=== PATIENT | female | born 2005 | race Caucasian/White ===

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

== ENCOUNTER 2023-02-20 18:19 | Emergency (ER) | payer OTHER, SELFPAY ==
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
[2023-02-20 18:34] VITALS: BP 152/104; PULSE 93; RESP 20; TEMP 36.2; O2SAT 100
[2023-02-20 20:37] VITALS: BP 144/76; PULSE 89; TEMP 37.1; O2SAT 100
--- NOTE | 2023-02-20 20:39 | ECG_ITS ---
Measurements Intervals [place] Rate: 84 P: 46 [place]: 152 QRS: 31 QRSD: 90 T: 40 QT: 355 QTc: 421 Interpretive Statements SINUS RHYTHM NO PREVIOUS ECG AVAILABLE FOR COMPARISON Electronically Signed On 02-21-2023 13:29:12 INSIGHT LEADER by Harish Mckinney M.D.
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
[2023-02-20] MEDS: ACETAMINOPHEN 500 MG TABLET 1000 MG PO (20:58)
[2023-02-20] MEDS: CYCLOBENZAPRINE HCL 10 MG TABLET PO (20:58)
[2023-02-20 21:12] LABS: Basophils Percent Auto 0.2 % (0.2-1.2); Eosinophils Absolute Auto 0.1 K/mm3 (0-0.3); Eosinophils Percent Auto 0.5 % (0-4.4); Hematocrit 42.8 % (37.0-47.0); Hemoglobin 13.3 g/dL (12.0-15.0); Immature Granulocyte Absolute 0.04 K/mm3 (0.00-0.031); Immature Granulocyte Percent A 0.4 % (0-0.5); Lymphocytes Absolute Auto 2.94 K/mm3 (0.9-3.2); Lymphocytes Percent Auto 31.5 % (18.3-44.2); Mean Corpuscular HGB Conc 31.1 g/dl (32-36); Mean Corpuscular Hemoglobin 26.6 pg (26-34); Mean Corpuscular Volume 85.6 fl (80-100); Mean Platelet Volume 10.5 fl (7.4-10.4); Monocytes Absolute Auto 0.5 K/mm3 (0.1-0.6); Monocytes Percent Auto 4.9 % (2.6-8.5); Neutrophils Absolute Auto 5.8 K/mm3 (1.3-6.7); Neutrophils Percent Auto 62.5 % (45.5-73.1); Platelet Count Result 282 k/mm3 (150-375); White Blood Count 9.3 K/mm3 (4.5-10.0)
[2023-02-20 21:21] LABS: Anion Gap 12 mmol/L (8-16); Blood Urea Nitrogen 12 mg/dL (8-21); Calcium 9.6 mg/dL (8.9-10.7); Carbon Dioxide 23 mmol/L (22-30); Chloride 106 mmol/L (98-107); Estimated CRCL calculation 137 ml/min; Estimated Glomerular Filt Rate > 60; Glucose 106 mg/dL (65-110); Potassium 3.9 mmol/L (3.4-5.0); Sodium 141 mmol/L (134-143)
[2023-02-20 21:31] LABS: Appearance Urine Cloudy (Clear); Bacteria Urine 4+ /hpf; Bilirubin Urine Negative (Negative); Blood Urine 3+ (Negative); Color Urine Yellow (Yellow); Glucose Urine UA Negative (Negative); Ketones Urine Trace mg/dL (Negative); Leukocyte Esterase Ur 1+ LEU/UL (Negative); Nitrate Urine Negative (Negative); Non Pathogenic Casts 0-2; Protein Urine 1+ mg/dL (Negative); Squamous Epithelial Cell Urine Occasional /hpf (Few); WBC Urine 51-100 /hpf; pH Urine 5.5 (5.0-9.0)
[2023-02-20 21:33] LABS: Troponin I < 0.012 ng/mL (0.000-0.034)
[2023-02-20 21:48] LABS: Specific Grav Ur 1.037 (1.001-1.035)
[2023-02-20 21:52] LABS: Add Urine Microscopic? YES
[2023-02-20] MEDS: CEPHALEXIN 500 MG CAPSULE PO (22:29)
== END 2023-02-20 22:33 | disposition home or self-care (01) ==
PROVIDERS: Emergency Provider Physician Assistant; PCP Nurse Practitioner Family
DX: S16.1XXA Strain of muscle, fascia and tendon at neck level, initial encounter (principal); S39.012A Strain of muscle, fascia and tendon of lower back, initial encounter; N30.01 Acute cystitis with hematuria; R07.89 Other chest pain; V43.52XA Car driver injured in collision with other type car in traffic accident, initial encounter
CPT/HCPCS: 36415; 71260; 72125; 72129; 72132; 74177; 80048; 81001; 81025; 84484; 85025; 87086; 87088; 93005; 99284; A9270; Q9967

== ENCOUNTER 2023-04-30 14:51 | Emergency (ER) | payer MEDICAID, SELFPAY ==
[2023-04-30 14:51] VITALS: BP 143/87; PULSE 98; RESP 20; TEMP 36.1; O2SAT 98
--- NOTE | 2023-04-30 14:55 | ED.URI ---
HPI - URI/Sore Throat General Chief Complaint: Upper Respiratory Infection Stated Complaint: sore throat, cough Source: patient Mode of arrival: ambulatory Limitations: no limitations History of Present Illness HPI Narrative: patient is a 17-year-old female with cough and congestion for the past 3 days. MD elicited complaint: fever, cough, sore throat, rhinorrhea, nasal congestion and sinus pain Onset (ago): day(s) (3) Consistency: constant Severity: moderate Pain scale (0-10): 1 Description of mucous: clear, watery and yellow Able to tolerate fluids by mouth: Yes Exacerbating factors: nothing Relieving factors: nothing Context: sick contacts Associated symptoms: fever, chills, myalgias, rhinorrhea, nasal congestion, sore throat and cough Treatments prior to arrival: acetaminophen, ibuprofen and cold medicine Related Data Home Medications Medication Instructions Recorded Confirmed etonogestrel 68 mg subdermal 1 implant subdermal ONCE 05/04/19 07/28/22 implant (Nexplanon) Allergies Allergy/AdvReac Type Severity Reaction Status Date / Time Penicillins Allergy Mild Gastrointestinal Verified 02/20/23 20:58 Upset Review of Systems Review of Systems: All systems reviewed & are unremarkable except as noted in HPI and below Constitutional: Constitutional: Reports no additional constitutional complaints Eyes: Eyes: Reports no additional eye complaints ENT: Reports system reviewed and no additional complaints, except as documented Cardiovascular: Cardiovascular: Reports no additional cardiovascular complaints Respiratory: Respiratory: Reports no additional respiratory complaints Gastrointestinal: Gastrointestinal: Reports no additional gastrointestinal complaints Genitourinary: Genitourinary: Reports no additional female genitourinary complaints Musculoskeletal: Musculoskeletal: Reports no additional musculoskeletal complaints Integumentary/Breasts: Skin/Breast: Reports system reviewed and no additional complaints, except as docu Neurologic: Reports system reviewed and no additional complaints, except as documented Psychiatric: Psychiatric: Reports no additional psychiatric complaints Endocrine: Endocrine: Reports no additional endocrine complaints Hematologic/Lymphatic: Hematologic/Lymphatic: Reports no additional hematologic/lymphatic complaints Allergic/Immunologic: Allergic/Immunologic: Reports no additional allergic/immunologic complaints PMFSH Past Medical History Medical History Cellulitis of right thigh Gastroenteritis Viral syndrome Surgical History Surgical History History of cholecystectomy History of tonsillectomy and adenoidectomy Scoliosis of thoracolumbar spine Surgery with elisa placement Family History Family History Father Asthma Hypertension Grandparent Asthma Hypertension Thyroid disorder Social History Social History Smoking status: Never smoker Alcohol intake: never Substance use: never Substance use type: does not use Lack of Transportation: No Lack of Food: Never True Current Housing: I Have Housing Concerned About Future Housing: No Difficulty Paying Gas/Electric Bills: No Difficulty Paying for Meds: No Currently Unemployed: No Education: High School Diploma/GED Difficulty w/ Childcare or Family Care: No Living arrangements: with family Occupation/Education: student Gender identity (if verbalized by the patient): Female Exam Const: General: healthy appearing Nutritional Appearance: well nourished Orientation/consciousness: patient oriented x3 HENMT: Head: normal to inspection Ears: external ears normal Face/Nose/Sinus: Normal external nose present Eyes: Conjunctivae: conjunctivae normal Pupi
[2023-04-30 15:54] LABS: Strep Group A RT-PCR NOT DETECTED (Negative)
[2023-04-30 16:05] LABS: SARS-CoV-2 RNA PCR Negative (Negative)
[2023-04-30 16:07] LABS: Influenza A QL RT-PCR Negative (Negative); Influenza B QL RT-PCR Positive (Negative); RSV RNA, RT-PCR Negative (Negative)
[2023-04-30 16:15] VITALS: BP 140/88; PULSE 98; RESP 20; TEMP 36.9; O2SAT 97
== END 2023-04-30 16:16 | disposition home or self-care (01) ==
PROVIDERS: Emergency Provider Emergency Medicine; PCP Nurse Practitioner Family
DX: J10.1 Influenza due to other identified influenza virus with other respiratory manifestations (principal); Z20.822 Contact with and (suspected) exposure to COVID-19
CPT/HCPCS: 87637; 87651; 99283

== ENCOUNTER 2023-06-09 11:43 | Outpatient (CLI) | payer MEDICAID, SELFPAY ==
[2023-06-09 12:17] LABS: Basophils Absolute Auto 0.03 K/mm3 (0.00-0.10); Basophils Percent Auto 0.4 % (0.0-1.0); Eosinophils Absolute Auto 0.04 K/mm3 (0.02-0.50); Eosinophils Percent Auto 0.5 % (1.0-6.0); Hematocrit 43.7 % (35.0-49.0); Hemoglobin 13.8 g/dL (12.0-15.0); Immature Granulocyte Absolute 0.03 K/mm3 (0.00-0.00); Immature Granulocyte Percent A 0.4 % (0.0-0.0); Lymphocytes Absolute Auto 2.46 K/mm3 (1.10-4.50); Lymphocytes Percent Auto 31.6 % (18.0-42.0); Mean Corpuscular HGB Conc 31.6 g/dL (32-36); Mean Corpuscular Hemoglobin 26.2 pg (27.0-31.0); Mean Corpuscular Volume 83.1 fL (78.0-102.0); Mean Platelet Volume 10.6 fl (9.2-11.8); Monocytes Absolute Auto 0.46 K/mm3 (0.10-0.90); Monocytes Percent Auto 5.9 % (2.0-11.0); Neutrophils Absolute Auto 4.76 K/mm3 (1.70-7.20); Neutrophils Percent Auto 61.2 % (50.0-70.0); Platelet Count Result 274 K/mm3 (150-420); Red Blood Count 5.26 M/mm3 (4.20-5.40); Red Cell Distribution Width 13.5 % (11.6-14.4); White Blood Count 7.8 K/mm3 (4.8-10.8)
[2023-06-09 12:36] LABS: Appearance Urine Clear (Clear); Bilirubin Urine Negative (Negative); Blood Urine 3+ (Negative); Color Urine Light Yellow (Yellow); Glucose Urine UA Negative (Negative); Ketones Urine Negative (Negative); Leukocyte Esterase Ur Negative (Negative); Nitrate Urine Negative (Negative); Protein Urine Negative (Negative); Urobilinogen Urine 0.2 mg/dL (0.2-1.0)
[2023-06-09 12:41] LABS: Add Urine Microscopic? YES; Bacteria Urine 1+ /hpf; Squamous Epithelial Cell Urine Occasional /hpf (Few); WBC Urine None seen /hpf (0-3)
[2023-06-09 13:05] LABS: HIV 1 P24 AG Negative (Negative); HIV 1/2 AB Negative (Negative)
[2023-06-09 13:22] LABS: Alanine Aminotransferase 45 U/L (14-59); Albumin Level 4.1 g/dL (3.4-5.0); Alkaline Phosphatase 52 U/L (50-130); Anion Gap 13 mmol/L (4-12); Aspartate Amino Transferase 18 U/L (15-37); Bilirubin,Total 0.3 mg/dL (0.00-1.00); Blood Urea Nitrogen 9 mg/dL (7-18); Calcium 9.5 mg/dL (8.5-10.1); Carbon Dioxide 26 mmol/L (21-32); Chloride 103 mmol/L (98-108); Cholesterol 168 mg/dL (0-200); Estimated Glomerular Filt Rate > 60; Glucose 85 mg/dL (70-99); HDL Direct 38 mg/dL (40-60); Iron 47 ug/dL (50-170); LDL Cholesterol Calculated 101 mg/dL (<130); Osmolality Calculated 291 mOsm/kg (285-295); Potassium 4.4 mmol/L (3.5-5.1); Sodium 142 mmol/L (136-145); Thyroid Stimulating Hormone 1.83 uIU/mL (0.52-4.13); Total Protein 7.1 g/dL (6.4-8.2); Triglycerides 145 mg/dL (0-150); Vitamin B12 179 pg/mL (193-986)
[2023-06-12 08:07] LABS: Trichomonas Vag PCR NOT DETECTED (NOT DETECTE)
[2023-06-12 08:25] LABS: Chlamydia trachomatis NOT DETECTED (NOT DETECTE); Neisseria gonorrhoeae PCR NOT DETECTED (NOT DETECTE)
[2023-06-12 13:36] LABS: RPR Screen Non-Reactive (Non-Reactive)
[2023-06-13 20:46] LABS: Vitamin D 25 Hydroxy 8 ng/mL (30-100)
[2023-06-15 04:01] LABS: Hepatitis C Virus Antibody Nonreactive
== END 2023-06-09 11:44 | disposition home or self-care (01) ==
LOC: CHSLAB 11:45
PROVIDERS: PCP Nurse Practitioner Family; Visit Provider Nurse Practitioner Family
DX: Z00.00 Encounter for general adult medical examination without abnormal findings (principal); R53.83 Other fatigue; E61.1 Iron deficiency; D64.9 Anemia, unspecified; Z11.3 Encounter for screening for infections with a predominantly sexual mode of transmission
CPT/HCPCS: 36415; 80053; 80061; 81001; 82306; 82607; 83540; 84443; 85025; 86592; 86695; 86696; 86803; 87086; 87088; 87491; 87591; 87661; 87806

== ENCOUNTER 2023-11-07 10:03 | Outpatient (RCR) | payer OTHER, SELFPAY ==
--- NOTE | 2023-11-07 11:00 | OPREHPOC ---
Outpatient Therapy Plan of Care This is a Multidisciplinary Plan of Care that may contain components documented by all disciplines (PT, OT, and ST.) PT Problem 1 PT Problem #1 Knowledge Deficit PT Goal 1 Goal / Goal Update 1. independent and compliant with HEP Target Visit 6 PT Problem 2 PT Problem #2 Pain PT Goal 1 Goal / Goal Update 1. decrease pain at worst to 4/10 or less in the lower back Target Visit 12 PT Problem 3 PT Problem #3 Impaired Strength PT Goal 1 Goal / Goal Update 1. improve core strength to 4-/5 or better 2. improve bilateral hip strength to 5/5 overall Target Visit 12 PT Problem 4 PT Problem #4 Impaired Range of Motion PT Goal 1 Goal / Goal Update 1. 100% active lumbar flexion and extension Target Visit 12 PT Problem 5 PT Problem #5 Impaired Functional Mobil PT Goal 1 Goal / Goal Update 1. oswestry to display less than 20% functional deficits 2. patient to ride in car/truck for 2 hours or more without increased pain 3. safe squat and lift mechanics of 50lbs 4. patient to begin home exercise routine for weight loss and core stability 3x weekly or more Target Visit 12
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
--- NOTE | 2023-12-07 14:02 | PCPTNOTE ---
Cancelled session today. Reports she has a lot to do before she leaves for vacation.
--- NOTE | 2023-12-26 11:19 | PTOPPROG ---
Assessment and note entered by Khadijah Howard DPT Evaluation Information Assessment Status Progress ICD-10 Condition Codes (PT) Pain in low back M54.50 Other ICD-10 Condition Codes ( M41.115; Z89.890; M62.838; M62.830 PT) Onset 10/20/23 Subjective Information patient reports that her pain has decreased since starting PT. She reports she is able to stand her whole work shift but is sore after but less than initially. She reports she is now able to sit for ~2 hours before onset of pain. She reports pain with lifting heavy objects. She reports riding in a car for long distances is uncomfortable. She reports independence with HEP. Assessment PT Clinical Summary Ms. Monique has attended 10 visits of skilled PT with good progress towards goals. She demonstrates improved LE strength and decreased pain with standing for her shift at work. She continue to demonstrates decreased lumbar flexibility and core strength and pain with prolonged sitting. She would benefit from remaining 2 visits to address impairments and return to PLOF. Plan of Care Interventions Electrical Stimulation,Gait Training,Hot Pack/Cold Pack,Manual Therapy,Neuro Re-education,Patient/ Caregiver Educati,Therapeutic Activities, Therapeutic Exercise PT Services Indicated Yes Treatment Frequency and continue with remaining 2 visits Duration These treatments will address the objective and functional deficits as defined above. The patient will be advanced safely and appropriately in order for the patient to progress towards his/her prior level of function. Additional exercises will be introduced and as well as a comprehensive home exercise program upon discharge, if needed, ?to ensure carryover of functional gains achieved in the clinic. This treatment plan has been reviewed and agreement upon by the patient.
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
--- NOTE | 2024-01-16 17:00 | OPREHPOC ---
Outpatient Therapy Plan of Care This is a Multidisciplinary Plan of Care that may contain components documented by all disciplines (PT, OT, and ST.) PT Problem 1 PT Problem #1 Knowledge Deficit PT Goal 1 Goal / Goal Update 1. independent and compliant with HEP Target Visit 6 Progress Met PT Problem 2 PT Problem #2 Pain PT Goal 1 Goal / Goal Update 1. decrease pain at worst to 2/10 or less in the lower back Target Visit 12 Progress Met PT Goal 2 Goal / Goal Update . PT Problem 3 PT Problem #3 Impaired Strength PT Goal 1 Goal / Goal Update 1. improve core strength to 4-/5 or better 2. improve bilateral hip strength to 5/5 overall. Target Visit 12 Progress Met PT Problem 4 PT Problem #4 Impaired Range of Motion PT Goal 1 Goal / Goal Update 1. 100% active lumbar flexion and extension Target Visit 12 Progress Met PT Problem 5 PT Problem #5 Impaired Functional Mobil PT Goal 1 Goal / Goal Update 1. oswestry to display less than 20% functional deficits 2. patient to ride in car/truck for 2 hours or more without increased pain 3. safe squat and lift mechanics of 50lbs. not assessed 4. patient to begin home exercise routine for weight loss and core stability 3x weekly or more Target Visit 12 Progress Partially Met
--- NOTE | 2024-01-16 17:01 | PTOPDC ---
Assessment and note entered by JT File, PT Evaluation Information Assessment Status Discharge ICD-10 Condition Codes (PT) Pain in low back M54.50 Other ICD-10 Condition Codes ( M41.115; Z89.890; M62.838; M62.830 PT) Onset 10/20/23 Subjective Information patient reports she is better overall, and is hoping to make today her last therapy visit. she reports her pain is much lower, and she is returned to standing at work without issues. Reported Pain Level Pain Score 2: Self Report Assessment PT Clinical Summary mrs. gregg presents to skilled PT services for her 12th skilled PT visit. she has met all goals for skilled PT today, except for she was not assessed on performance of lifting 50lbs from floor. she will DC skilled PT today, and continue with HEP independent at home. Plan of Care PT Services Indicated Yes
== END 2024-01-16 17:00 | disposition home or self-care (01) ==
LOC: CHSPT 10:03
DX: M54.50 Low back pain, unspecified (principal); M41.115 Juvenile idiopathic scoliosis, thoracolumbar region; M62.838 Other muscle spasm; M62.830 Muscle spasm of back; Z98.890 Other specified postprocedural states
CPT/HCPCS: 29581; 97014; 97110; 97161; G0283

== ENCOUNTER 2023-11-13 09:37 | Outpatient (CLI) | payer OTHER, SELFPAY ==
[2023-11-13 10:21] LABS: Strep Group A RT-PCR NOT DETECTED (Negative)
[2023-11-13 10:26] LABS: SARS-CoV-2 RNA PCR Negative (Negative)
[2023-11-13 10:28] LABS: Influenza A QL RT-PCR Negative (Negative); Influenza B QL RT-PCR Negative (Negative)
== END 2023-11-13 09:38 | disposition home or self-care (01) ==
PROVIDERS: PCP Nurse Practitioner Family; Visit Provider Nurse Practitioner Family
DX: J06.9 Acute upper respiratory infection, unspecified (principal)
CPT/HCPCS: 87636; 87651

== ENCOUNTER 2024-02-13 22:56 | Emergency (ER) | payer OTHER, SELFPAY ==
--- NOTE | ~2024-02-13 | XR_ITS ---
Clinical Indication: Cough PA and lateral views of the chest: Comparison: 04/15/2006 Findings: The lungs are clear, without evidence of focal consolidation or pleural effusion. Cardiome diastinal silhouette is within normal limits. Extensive spinal fixation hardware present. Impression: Clear lungs. Reviewed, dictated and finalized at [facility]. RGLASS QUALITY TECHNICIAN Impression: Clear lungs.
--- NOTE | 2024-02-13 22:59 | ED.URI ---
HPI - URI/Sore Throat General Chief Complaint: Upper Respiratory Infection Stated Complaint: upper respiratory Time Seen by Provider: 02/13/24 22:56 Source: patient Mode of arrival: ambulatory Limitations: no limitations History of Present Illness HPI Narrative: 18 year old female presents to the Emergency Department complaining of cough, congestion. 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 She believes she has contracted one of them. Onset this past weekend with cough, but feeling ill since yesterday. No known fever. No nausea, vomiting or diarrhea. MD elicited complaint: cough and nasal congestion Onset (ago): day(s) Severity: moderate Able to tolerate fluids by mouth: Yes Exacerbating factors: nothing Relieving factors: nothing Context: sick contacts Treatments prior to arrival: none Related Data Allergies Allergy/AdvReac Type Severity Reaction Status Date / Time Penicillins Allergy Mild Gastrointestinal Verified 01/23/24 10:48 Upset Review of Systems Review of Systems: All systems reviewed & are unremarkable except as noted in HPI and below Constitutional: Constitutional: Reports as per HPI, Denies chills and Denies fever(s) Eyes: Eyes: Reports as per HPI ENT: Reports system reviewed and no additional complaints, except as documented, Reports nasal congestion and Denies sore throat Cardiovascular: Cardiovascular: Reports as per HPI and Denies chest pain Respiratory: Respiratory: Reports as per HPI and Reports cough Gastrointestinal: Gastrointestinal: Reports as per HPI, Denies diarrhea, Denies nausea and Denies vomiting Genitourinary: Genitourinary: Reports no additional female genitourinary complaints Musculoskeletal: Musculoskeletal: Reports no additional musculoskeletal complaints Integumentary/Breasts: Skin/Breast: Reports system reviewed and no additional complaints, except as docu Neurologic: Reports system reviewed and no additional complaints, except as documented Endocrine: Endocrine: Reports no additional endocrine complaints Hematologic/Lymphatic: Hematologic/Lymphatic: Reports no additional hematologic/lymphatic complaints Allergic/Immunologic: Allergic/Immunologic: Reports no additional allergic/immunologic complaints FOR[facility]LY [facility] Past Medical History Medical History Viral syndrome Cellulitis of right thigh Gastroenteritis Surgical History Surgical History History of tonsillectomy and adenoidectomy Scoliosis of thoracolumbar spine Surgery with elisa placement History of cholecystectomy Family History Family History Father Asthma Hypertension Grandparent Asthma Hypertension Thyroid disorder Social History Social History Smoking status: Never smoker Alcohol intake: never Substance use: never Substance use type: does not use Lack of Transportation: No Lack of Food: Never True Current Housing: I Have Housing Concerned About Future Housing: No Difficulty Paying Gas/Electric Bills: No Difficulty Paying for Meds: No Currently Unemployed: No Education: High School Diploma/GED Difficulty w/ Childcare or Family Care: No Living arrangements: with family Occupation/Education: student Gender identity (if verbalized by the patient): Female Exam Const: General: no acute distress Nutritional Appearance: obese Orientation/consciousness: patient oriented x3 Limitations: no limitations HENMT: Head: normal to inspection Ears: external ears normal Face/Nose/Sinus: Normal external nose present Face and sinus: normal facial exam Mouth: Yes Normal oral and palatal mucosa present Throat: posterior oropharynx normal Eyes: Conjunctivae: conjunctivae normal Pupils: Equal, round and reactive pupils present EOM: EOMs intact bilaterally Direct Ophthalmoscopy: no photophobia Neck: Neck: normal visual inspection, no lymphadenopathy and no meningeal signs Chest: Chest palpation & inspection: normal inspection of the chest Resp: Effort & Inspection: normal respiratory effort Auscultation: clear to auscultation bilaterally and diminished lung sounds Cardio: Rate: regular rate Rhythm: regular rhythm GI: Inspection: non-distended GI Palp: Yes Soft to palpation and No Tenderness to palpation present (GI) Back/Spine/Pelvis: Back: no CVA tenderness Skin: General skin exam: normal color Rashes: no rashes Neuro: General: patient oriented x3 Speech: normal speech Gait exam (Neuro): Normal gait present Other: grossly normal Extrem: General: normal to inspection and no clubbing, cyanosis or edema Psych: Mental Status: mental status grossly normal Course Course Emergency Course: 18 y/o female presents to the ED c/o cough, congestion. Onset several days ago. 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 Discussed further management. Patient voices understanding and agreement. Instructions Vital Signs Vital signs: Vital Signs Temperature 36.9 C 02/13/24 23:02 Pulse Rate 108 H 02/13/24 23:02 Respiratory Rate 20 02/13/24 23:02 Blood Pressure 156/86 H 02/13/24 23:02 Pulse Oximetry 98 02/13/24 23:02 Oxygen Delivery Room Air 02/13/24 23:02 Temperature 36.9 C 02/13/24 23:02 Pulse Rate 108 H 02/13/24 23:02 Respiratory Rate 20 02/13/24 23:02 Blood Pressure 156/86 H 02/13/24 23:02 Pulse Oximetry 98 02/13/24 23:02 Oxygen Delivery Room Air 02/13/24 23:02 MDM - URI/Sore Throat Lab Data Labs: Lab Results 02/13/24 Range/Units 23:07 Influenza A (RT-PCR) Negative (Negative) Influenza B (RT-PCR) Negative (Negative) RSV (RT-PCR) Positive A (Negative) SARS-CoV-2 RNA (RT-PCR) Negative (Negative) Discharge Plan Discharge Clinical Impression: Respiratory syncytial virus (RSV) Patient Disposition: Home, Self-Care Condition: Stable Instructions: RSV (Respiratory Syncytial Virus) Infection (ED) Additional Instructions: Rest Push fluids Tylenol every 4 hours and Ibuprofen every 6 hours for fever and body aches OTC symptomatic treatment Follow up Primary Care Physician Patient Language: Iranian Prescriptions: No Action famotidine [Acid Shank Cementer Hand (famotidine)] 20 mg tablet 20 mg PO DAILY Qty: 30 2RF loperamide [Anti-Diarrheal (loperamide)] 2 mg capsule 2 mg PO Q6H PRN (Reason: loose stool) Qty: 60 0RF simethicone [Gas Relief (simethicone)] 180 mg capsule 180 mg PO BID PRN (Reason: abdominal distention) Qty: 60 1RF Follow-up/Referrals: Sunday Lozoya APRN [Primary Care Provider] - Stand Alone Forms: Work/School Release IP Time of Disposition: 00:28
[2024-02-13 23:02] VITALS: BP 156/86; PULSE 108; RESP 20; TEMP 36.9; O2SAT 98
[2024-02-13 23:51] LABS: SARS-CoV-2 RNA PCR Negative (Negative)
--- NOTE | 2024-02-13 23:51 | PC.NURSE ---
PATIENT IS RESTING ON STRETCHER. WAITING ON COVID RESULTS. DENIES ANY NEEDS. CALL LIGHT IN REACH
[2024-02-13 23:52] LABS: Influenza A QL RT-PCR Negative (Negative); Influenza B QL RT-PCR Negative (Negative); RSV RNA, RT-PCR Positive (Negative)
[2024-02-14 00:35] VITALS: BP 140/70; PULSE 88; RESP 20; O2SAT 98
== END 2024-02-14 00:35 | disposition home or self-care (01) ==
PROVIDERS: Emergency Provider Emergency Medicine; PCP Nurse Practitioner Family
DX: J06.9 Acute upper respiratory infection, unspecified (principal); B97.4 Respiratory syncytial virus as the cause of diseases classified elsewhere; Z20.822 Contact with and (suspected) exposure to COVID-19
CPT/HCPCS: 71046; 87637; 99283

== ENCOUNTER 2024-06-15 22:47 | Emergency (ER) | payer OTHER, SELFPAY ==
--- NOTE | ~2024-06-15 | CT_ITS ---
CT abdomen pelvis w con Ordering provider: Les Gold MD History: 18 years Female with . possible supraumbilical hernia. ABD PAIN X 3 DAYS. . Comparison: February 20, 2023 Technique: CT abdomen and pelvis with IV and without oral contrast. Automated exposure control and it erative reconstruction technique were employed. The dose-length product was 1482.40 mGy-cm. 100 mL Om nipaque 350 was given IV. Findings: VISUALIZED LOWER CHEST: Normal. UPPER ABDOMINAL ORGANS: Liver: Fat infiltration. Hepatomegaly. Gallbladder: Status post cholecystectomy. Spleen: Normal. Stomach/duodenum: Normal. Pancreas: Normal. Adrenals: Normal. Kidneys: Normal. PELVIC ORGANS: The bladder is underfilled. Small right ovarian cyst. BOWEL AND MESENTERY: Colon: Cecal diverticulitis with surrounding fat stranding. No abscess formation seen. Normal appendi x. Small Bowel: Normal. No obstruction. Peritoneum/mesentery: No free air or free fluid. No mesenteric lymphadenopathy. RETROPERITONEUM: Normal aorta. No retroperitoneal lymphadenopathy. MUSCULOSKELETAL: Superficial soft tissues: Small fat-containing umbilical hernia. Otherwise, The superficial soft tiss ues are normal. Bones: Age appropriate degenerative changes of the spine. Postoperative changes in the thoracolumbar area. Dextroscoliosis. IMPRESSION: 1. Cecal diverticulitis with no abscess formation. 2. Small umbilical fat-containing hernia. 3. Fat infiltration of the liver. Hepatomegaly. Reviewed, dictated and finalized at location A.
--- OUTSIDE RECORDS SUMMARY | 2024-06-15 22:49 | XMS_ITS | Clinical Summary ---
Author Organization [facility] Address [address] [place] [address] Care Team Providers Care Metal Control Coordinator Name Role Phone Lit Malone MD Primary Care Provider Pj Sandhu MD Unavailable Source Comments [facility],non-owned Affiliates and Associated Physician Practices is amultiple site organization consisting of ambulatory clinics and hospital sitesin [place], [place], [place] and [place]. This disclosure is being madepursuant to the Care Everywhere program and may not contain all information available regarding this patient. Last updated 17.[facility] Allergies Active Allergy Reactions Criticality Noted Date Comments Penicillins Urticaria 08/12/2009 Medications * Be aware that medications may not be up to date on this document. Alwaysverify current medications with the patient. acetaminophen (TYLENOL) 325 MG tablet Take 1 Tab by mouth every 6 hours as needed for Pain Maximum allowable Acetaminophen amount = 4 Grams (4000 mg) / 24 hours. 120 Tab 0 08/29/19 16 Active ibuprofen (MOTRIN) 200 MG tablet Take 400 mg by mouth every 6 hours as needed for Pain Active methocarbamol (Robaxin) 500 MG tabletIndications :Low back pain, unspecified back pain laterality, unspecified chronicity, unspecified whether sciatica present,Juvenile idiopathic scoliosis of thoracolumbar region,Hx of spinal surgery,Cervical paraspinal muscle spasm,Lumbar paraspinal muscle spasm Take 1 (one) tablet by mouth every 8 hours 90 tablet 2 10/20/19 24 Active meloxicam (Mobic) 15 MG tabletIndications :Low back pain, unspecified back pain laterality, unspecified chronicity, unspecified whether sciatica present,Juvenile idiopathic scoliosis of thoracolumbar region,Hx of spinal surgery,Cervical paraspinal muscle spasm,Lumbar paraspinal muscle spasm Take 1 (one) tablet by mouth once daily 30 tablet 10/20/19 24 Active methylPREDNISolon e (Medrol Dosepak) 4 MG tabletIndications :Low back pain, unspecified back pain laterality, unspecified chronicity, unspecified whether sciatica present,Juvenile idiopathic scoliosis of thoracolumbar region,Hx of spinal surgery,Cervical paraspinal muscle spasm,Lumbar paraspinal muscle spasm Take by mouth as directed <!--EPICS-->Follo w package insert dosing for six day supply.<!--EPICE- -> 21 tablet 10/20/19 24 Active Active Problems Problem Noted Date Diagnosed Date s/p Posterior instrumentatio n and fusion of T3 to L1 on 08/25/15 10/15/2015 Scoliosis (and kyphoscoliosis), idiopathic 08/04 Overview (12/04/2020): IMO 2020 Acute post-operative pain Back pain Spasm of muscle Social History Tobacco Use Types Packs/Day Years Used Date Smoking Tobacco: Never Smokeless Tobacco: Never Alcohol Use Standard Drinks/Week Comments No 0 (1 standard drink = 0.6 oz pur e alcohol) PHQ-2 Answer Date Recorded Patient Health Questionnaire-2 Score 2 10/20/2023 Comments No Sex and Gender Information Value Date Recorded Sex Assigned at Female 10/21/2023 1:35 AM CDT Legal Sex Female 8:45 AM CAMPUS REP Gender Identity Female 10/21/2023 1:35 AM CDT Sexual Orientation Not on file Last Filed Vital Signs Vital Sign Reading Time Taken Comments Blood Pressure 102/60 09/14/2015 2:10 PM CDT Pulse 86 09/14/2015 2:10 PM CDT Temperature 37.1 C (98.8 F) 09/14/2015 2:10 PM CDT Respiratory Rate 20 09/14/2015 2:10 PM CDT Oxygen Saturation 100% 08/30/2015 7:50 PM CDT Inhaled Oxygen Concentration 100% 08/26/2015 7 :44 AM CDT Weight 139.3 kg (307 lb 3.2 oz) 10/20/2023 2:10 PM CDT Height 165.4 cm (5' 5.12 ) 04/01/2019 2:45 PM CS T Body Mass Index - - Plan of Treatment Health Maintenance Due Date Last Done Comments HIV SCREENING 09/10/2018 HPV VACCINE (1 - 3-dose series) 09/10/2018 CHLAMYDIA/GONORRHEA SCREENING 2019 MENINGOCOCCAL (Group B) VACC INE SHARED DECISION-MAKING (1 of 2 - Standard) 2019 HEPATITIS C SCREENING 09/06/2021 DTAP/TDAP/TD VACCINES (1 - Tdap) 09/10/2022 HEPATITIS B VACCINE (1 of 3 - 19+ 3-dose series) 09/10/2022 COVID-19 VACCINE (1 - 2023-2 5 season) 2023 DEPRESSION SCREENING 03/06/2024 10/20/2023 INFLUENZA VACCINE (Season Ended) 2024 ZOSTER VACCINE (1 of 2) 09/10/2053 HIB VACCINE Aged Out No longer eligi ble based on patient's age to complete this topic MENINGOCOCCAL GROUPS A/C/Y/W VACCINE Aged Out No longer eligible b ased on patient's age to complete this topic PNEUMOCOCCAL VACCINE Aged Out No long er eligible based on patient's age to complete this topic Medical Devices Implanted Type Area Non Ferrous Material Handler Device Identifier Shelf Expiration Date Model / Serial / Lot Chip Canc Bone Frz Dried 4-9.5mm 90cc Implanted:Qty: 1 on 08/25/2015 by Pj Sandhu MD at [facility] N/A: Back [employer] 08/28/2019 [id number] / / [id number] Cocr Rail 495mm Implanted:Qty: 1 on 08/25/2015 by Pj Sandhu MD at [facility] N/A: Back [employer] [id number] / / Closed Lumbar Laminar Hook, Offset, Right Implanted:Qty: 1 on 08/25/2015 by Pj Sandhu MD at [facility] N/A: Back [employer] [id number] / / Pedicle Hook, Large Implanted:Qty: 1 on 08/25/2015 by Pj Sandhu MD at [facility] N/A: Back [employer] [id number] / / K2m Sacral Screw, 30mm Implanted:Qty: 1 on 08/25/2015 by Pj Sandhu MD at [facility] N/A: Back [employer] [id number] / / St Scrw Atr Implanted:Qty: 1 on 08/25/2015 by Pj Sandhu MD at [facility] N/A: Back [employer] [id number] / / Scrw Poly Rayo 5.5mm X 35mm Implanted:Qty: 4 on 08/25/2015 by Pj Sandhu MD at [facility] N/A: Back [employer] [id number] / / Description:polyaxial screw Scrw Poly Rayo 5.5mm X 40mm Implanted:Qty: 1 on 08/25/2015 by Pj Sandhu MD at [facility] N/A: Back [employer] [id number] / / Description:polyaxial screw Scrw Poly Rayo Uni 5.5mm X 35mm Implanted:Qty: 3 on 08/25/2015 by Pj Sandhu MD at [facility] N/A: Back [employer] [id number] / / Description:uniaxial screw Scrw Poly Rayo Uni 5.5mm X 40mm Implanted:Qty: 2 on 08/25/2015 by Pj Sandhu MD at [facility] N/A: Back [employer] [id number] / / Description:uniaxial screws K2m Sacral Screw Implanted:Qty: 1 on 08/25/2015 by Pj Sandhu MD at [facility] N/A: Back [id number] / / Scrw Poly Rayo 6.5mm X 40mm Implanted:Qty: 2 on 08/25/2015 by Pj Sandhu MD at [facility] N/A: Back [employer] [id number] / / Scrw Rayo 6.5 X 40mm Sacr Implanted:Qty: 2 on 08/25/2015 by Pj Sandhu MD at [facility] N/A: Back [employer] [id number] / / Hayes Cocr 500mm Implanted:Qty: 1 on 08/25/2015 by Pj Sandhu MD at [facility] N/A: Back [employer] [id number] / / Insurance [facility] [employer] [facility] Advance Directives * Full Code (Latest Code Status on File) Date Activated Date Inactivated Comments 08/25/2015 4:22 PM 08/29/2015 11:22 AM Care Teams Metal Control Coordinator Relationship Specialty Start Date End Date Lit Malone MD [address] [place] [phone] PCP - General Family Medicine 06/24/15 Pj Sandhu MD [address] [place] [phone] Orthopedic Surgery 04/01/19
--- OUTSIDE RECORDS SUMMARY | 2024-06-15 22:49 | XMS_ITS | Data Portability ---
Author Organization [facility] [place] Address [address] [place] [address] [place] [address] Assessment No assessment recorded. Plan of Treatment Reminders Order Date Submit Date Provider Last Modified By Organization Details Last Modified Time Details Appointments None recorded. Lab test, urine [address] [facility] [email or web address] [place], [place] [id number], [address], [place], [address], 16:30:04 Referral None recorded. Procedures None recorded. Surgeries None recorded. Imaging None recorded. Medication Orders doxycycline hyclate 100 mg capsule [address]/Pharmacy #[id number], [address] [place], [address], 4 15:00:48 Slynd 4 mg (28) tablet [address]/Pharmacy #[id number], [address] [place], [address], 4 15:01:29 Patient TargetsNo targets recorded. Patient Instructions Encounter Date Encounter Id Patient Instructions Last Modified By Organization Details Last Modified Time 07/21/2023 [id number] surgical trays* [email or web address] Not available 05/29/2024 09:23:17 Reason for Referral None Reported. Results Created Date Observation Date Name Description Value Unit Range Abnormal Flag Note LastModifiedBy Organization Detail LastModifiedTime 07/19/19 24 07/19/2023 VAGIN ITIS/ VAGIN OSIS, DNA PROBE maico sp. detection, direct probe Negati ve negati ve Not Available [facility] (Lab) [address] [place], [address], 07/20/2023 11:35:55 07/19/19 24 07/19/2023 VAGIN ITIS/ VAGIN OSIS, DNA PROBE gardnerella vag. detection, direct probe Positi ve negati ve abnormal Not Available [facility] (Lab) [address] [place], [address], 07/20/2023 11:35:55 07/19/19 24 07/19/2023 VAGIN ITIS/ VAGIN OSIS, DNA PROBE trichomonas vag. detection, direct probe Negati ve negati ve Not Available [facility] (Lab) [address] [facility], [place], [address], 07/20/2023 11:35:55 07/19/19 24 07/19/2023 CULTU RE: URINE result report SEE RESULT S BELOW Test: Cultu re: Urine Speci men Sourc e: Urine - Clean Catch Speci men Type: Urine Speci men Date: 2023 5:07 PM Resul t Date: 2023 5:50 AM Resul t Statu s: Final resul t Abnor mal: No Resul ting Lab: [facility] [address] [facility] [address] Tel: CULTU RE ----- ----- ----- --- No growt h in 1 day (dete ction level of 10,00 0 colon ies / ml.) Not Available [facility] (Lab) [address] [place], [address], 07/21/2023 06:55:31 07/19/19 24 07/19/2023 pregn sabina test, urine HCG negati ve Not Available [place] [address], [place], [address], 07/19/2023 16:29:57 01/19/20 24 01/19/2024 [facility] SWAB PLUS, RIA bacterial vaginosis (bv), tma Positi ve negati ve abnormal Not Available [facility] (Lab) [address] [place], [address], 01/20/2024 15:06:22 01/19/20 24 01/19/2024 [facility], RIA maico species, tma Negati ve negati ve Not Available [facility] (Lab) [address] [facility], [place], [address], 01/20/2024 15:06:22 01/19/20 24 01/19/2024 [facility] SWAB PLUS, RIA maico glabrata, tma Negati ve negati ve Not Available [facility] (Lab) [address] [place], [address], 01/20/2024 15:06:22 01/19/20 24 01/19/2024 [facility], RIA trichomonas vaginalis, tma Negati ve negati ve Not Available [facility] (Lab) [address] [place], [address], 01/20/2024 15:06:22 01/19/20 24 01/19/2024 [facility], RIA chlamydia trachomatis, PCR Negati ve negati ve Not Available [facility] (Lab) [address] [place], [address], 01/20/2024 15:06:22 01/19/20 24 01/19/2024 [facility] SWAB PLUS, RIA neisseria gonorrhoeae, PCR Negati ve negati ve Bacte rial vagin osis detec ts the follo wing bacte gene assoc iated with bacte rial vagin osis (BV): Lacto bacil sree (L. gasse ri, L. crisp atus and L. jense ansley), Gardn erell a vagin carmen, and Atopo bium vagin ae. A singl e quali tativ e resul t is repor sabina base on instr ument softw are to deter mine BV posit mook or negat mook statu s. The Madeleine da speci es group tests for C. albic ans, C. tropi calis , C. parap christy is, C. dubli niens is. Testi ng is perfo rmed using the Trans cript ion Media sabina Ampli ficat ion metho d. Tests for Madeleine da glabr candace, Trich omona s vagin carmen, Chlam ydia trach omati s, and Neiss eria gonor rhoea e are also inclu ded in this panel . Not Available [facility] (Lab) [address], [place], [address], 01/20/2024 15:06:22 Result Notes None recorded. Procedures Surgical History Date Name Laterality Status Provider Name and Address Organization Details Recorded Time 4 Suture/Stapl e removal completed ADRIAN Cardenas [address], [place], [address], [facility] 07/28/2023 11:04:16 4 Control Implant Removal completed ADRIAN Cardenas [address], [place], [address], [facility] 07/21/2023 11:59:01 tonsilectomy /adenoids completed Radha Madrigal [facility] 07/19/2023 16:17:41 Imaging Results None recorded. Procedure Notes None recorded. Medical Equipment None Reported. Allergies Allergen ID Allergen Name Allergen Category Reaction Reaction Severity Criticality Documentation Date Start Date Code Code System Note Provider Name and Address Organization Details Recorded Time 88386 Penicilli n Not available anaphylax is severe Not available 01/19/2024 32295 RxNorm Marisol dorsey, [facility] 4 17:49:30 Medications Name Sig Start Date Stop Date Status Note LastModified by Organization Details LastModified Time methocarbam ol 500 mg tablet TAKE 1 (ONE) TABLET BY MOUTH EVERY 8 HOURS active Not Available Not Available No t Available buspirone 5 mg tablet TAKE 1 TABLET BY MOUTH TWICE A DAY active Not Available Not Available No t Available doxycycline hyclate 100 mg capsule active Not Available Not Available N ot Available loperamide 2 mg capsule active Not Available Not Available Not Available meloxicam 15 mg tablet TAKE 1 TABLET BY MOUTH EVERY DAY active Not Available Not Available No t Available metronidazo le 0.75 % (37.5 mg/5 gram) vaginal gel Insert 1 applicato rful every day by vaginal route for 5 days. active Not Available Not Available No t Available metronidazo le 500 mg tablet Take 1 tablet every 12 hours by oral route for 7 days. 01/25 completed Not Available Not Available Not Available famotidine 20 mg tablet TAKE 1 TABLET BY MOUTH EVERY DAY active Not Available Not Available No t Available triamcinolo ne acetonide 0.1 % topical ointment APPLY TOPICALLY TWICE A DAY FOR 2 WEEKS active Not Available Not Available No t Available ergocalcife rol (vitamin D2) 1,250 mcg (50,000 unit) capsule TAKE 1 TABLET BY MOUTH WEEKLY FOR 8 WEEKS 01/18 completed Not Available Not Available Not Available methylpredn isolone 4 mg tablets in a dose pack TAKE BY MOUTH DIRECTED <!--EPICS -->FOLLOW PACKAGE INSERT DOSING FOR SIX DAY SUPPLY.<! --EPICE-- > 01/18 completed Not Available Not Available Not Available escitalopra m 10 mg tablet TAKE 1 TABLET BY MOUTH EVERY DAY active Not Available Not Available No t Available Nexplanon 68 mg subdermal implant 07/26 completed Not Available Not Available Not Available Slynd 4 mg (28) tablet Take 1 tablet every day by oral route. 2023 active Not Available Not Available Not Avai lable Vitals Date Recorded Body height Body mass index (BMI) Percentile per age and sex Body mass index (BMI) Body weight Systolic blood pressure Diastolic blood pressure Provider Name and Address Organization Details Last Updated DateTime 4 165.1 cm 99.94 % 51.1 kg/m2 408652. 86 g 121 mm[Hg] 80 mm[Hg] Radha Madrigal [facility] 4 16:06:45 Date Recorded Body height Body mass index (BMI) Percentile per age and sex Body mass index (BMI) Body weight Systolic blood pressure Diastolic blood pressure Provider Name and Address Organization Details Last Updated DateTime 4 165.1 cm 99.93 % 50.9 kg/m2 337676. 27 g 128 mm[Hg] 84 mm[Hg] Radha Madrigal [facility] 4 11:11:09 Date Recorded Body height Body mass index (BMI) Percentile per age and sex Body mass index (BMI) Body weight Systolic blood pressure Diastolic blood pressure Provider Name and Address Organization Details Last Updated DateTime 4 165.1 cm 99.93 % 50.9 kg/m2 286244. 27 g 132 mm[Hg] 82 mm[Hg] [facility] 4 10:18:08 Date Recorded Body height Body mass index (BMI) Body mass index (BMI) Percentile per age and sex Body weight Systolic blood pressure Diastolic blood pressure Provider Name and Address Organization Details Last Updated DateTime 4 165.1 cm 50.9 kg/m2 99 % 495463. 27 g 132 mm[Hg] 81 mm[Hg] Marisol Silver [facility] 4 17:47:55 Social History Question Answer Notes LastModified by Organizat ion Details LastModified Time Tobacco Smoking Status Never Smoker Radha Madrigal [facility] 07/19/2023 16:16:36 What Is Your Level Of Alcohol Consumption? None Information not available 07/19/2023 Are You Blind Or Do You Have Difficulty Seeing? No Information not available 07/19/2023 What Is Your Level Of Caffeine Consumption? Occasional Information not available 07/19/2023 How Much Tobacco Do You Chew? None [email or web address] Information not available 01/19/2024 In The 14 Days Before Symptom Onset, Have You Had Close Contact With A Laboratory-confir [facility] COVID-19 While That Case Was Ill? No Information not available 07/19/2023 In The 14 Days Before Symptom Onset, Have You Had Close Contact With A Person Who Is Under Investigation For COVID-19 While That Person Was Ill? No Information not available 07/19/2023 Have You Been To An Area Known To Be High Risk For COVID-19? 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 No Information not available 07/19/2023 What Type Of Diet Are You Following? REGULAR Information not available 07/19/2023 What Is The Highest Grade Or Level Of School You Have Completed Or The Highest Degree You Have Received? [id number] Information not available 07/19/2023 Are There Any Guns Present In Your Home? No Information not available 07/19/2023 Do You Use Protection During Sex? Usually Information not available 07/19/2023 Do You Use Your Seat Belt Or Car Seat Routinely? Yes Information not available 07/19/2023 Do You Have Smoke And Carbon Monoxide Detectors In Your Home? Yes Information not available 07/19/2023 How Much Tobacco Do You Smoke? No Information not available 07/27/2023 Do You Feel Stressed (tense, Restless, Nervous, Or Anxious, Or Unable To Sleep At Night)? [id number] Information not available 07/19/2023 Do You Use Any Illicit Or Recreational Drugs? No Information not available 07/19/2023 Do You Use Sunscreen Routinely? No Information not available 07/19/2023 Have You Used IV Drugs? No Information not available 07/19/2023 Sex: Unknown Functional Status Question Answer Note LastModified by Organizat ion Details LastModified Time Are you able to walk? YESWOREST Information not available 07/19/2023 What is your exercise level? Occasional Information not available 07/19/2023 Mental Status None recorded. Family History Relationship Description Onset Age of this Age Resolved Age Notes LastModified by Organization Details LastModified Time Unspecified Relation Family history unknown Not available 2023 16:07:31 Medical History Condition Response Anxiety Disorder Y Hepatitis/Liver Disease Y Anemia Y Gynecological History Statement/Question Response Abnormal Pap N Date of Last Mammogram Flow Heavy Date of LMP 07/19/2023 On BCP's at Conception? N N STIs/STDs N HPV Vaccine Y Colposcopy Duration of Flow (days) 90 Current Control Method None Date of Last Colonoscopy Sexually Active? Y Age of first menstrual cycle 8 Date of Last Pap Smear Sexual Problems? N Desired Control Method BCPs LMP Definite N Obstetrics History GPAL:G 0 P 0 0 0 0 Past Encounters Encounter ID Performer Location Encounter Start Date Encounter Closed Date Diagnosis/Indication Diagnosis SNOMED-CT Code Diagnosis ICD10 Code Diagnosis Note [id number] ADRIAN Cardenas [place] [address],[place] [address] 07/19/2023 16:03:21 07/19/2023 17:01:09 Abnormal uterine bleeding 8231651311 9100 N93.9 Irregular periods 334340 07 N92.6 Detailed health hx obtained and reviewed todayDiscu ssed nexplanon and SE of irregular/ unschedule d bleeding that can occuralter allakaket BC methods discussed - r/b/a reviewedde sires nexplanon removal and to start slyndsched uled to return this week for nexplanon removalque stions answered, precaution s reviewedST I testing declined (had recent negative testing at her PCP) Contracept ion care management 230961559 Z30.9 Vaginal odor 085832158 N 89.8 vaginitis panel sent, vulvar care guidelines discussed Urinary symptoms 0738378 08 R39.9 urine cx sent Time spent in visit is a total of 30 mins with at least 50% of visit consisting of counseling and review of plan of care. [id number] ADRIAN Cardenas [place] [address],[facility] [place] [address] 07/21/2023 11:01:24 07/21/2023 12:06:12 Removal of subcutaneous contraceptive 145273525 Z30.46 consent reviewed and signednexp lanon removed (see procedure note)RTC in 1 week for suture removalpre cautions discussed, questions answered, pt verbalized understand ing [id number] ADRIAN Cardenas [place] [address],[place] [address] 07/28/2023 10:15:46 07/28/2023 11:08:20 Removal of suture 50687570 Z48.02 removal of sutures done (see procedure note)pt doing wellprecau tions discussedR TC for med check of slynd in 3-4 months Marisol Silver [place] [address] [address] 01/19/2024 15:31:49 01/22/2024 04:18:10 Health Concerns Section Related Observation LastModified by Organization Detai ls LastModified Time None Recorded Concern Status LastModified by Organization Details LastModified Time None Recorded Advance Directives Directive None Recorded Payers Encounter Date Sequence Insurance Name Policy Number Policy Price Covered Member ID Price Member ID Guarantor Name 07/19/2023 1 [place] [facility] [id number] [facility] 07/21/2023 1 [place] [facility] [address] [id number] [facility] 07/28/2023 1 [place] [facility] [address] [id number] [facility] 01/19/2024 1 [facility] (MEDICAID HMO) [id number] [facility] [id number] [facility] Notes Date Note Type Note Provider Name and Address Organization Details Recorded Time 4 text/html 17yo E0tarhitpg for irregular bleedingnexplanon for BC, inserted in eriods irregular since nexplanon insertionBleeding on and off for the month of 01/2023, then 2 months ago started having bleeding on and off again. Changes pads every 6 hourssaw PCP 3 weeks ago - had blood work done and negative STI testingnot currently SA, prefers male and female partners has noticed a vaginal odor at timesslight irritation with urination that comes and goes - taking azo currentlyneg flank painsneg d/c, itchingneg pelvic painneg n/v/fneg SOB, dizziness, fatigue ADRIAN Cardenas [address], [place], [address], [facility] 07/19/2023 16:52:44 4 text/html 17yopresents for nexplanon removal ADRIAN Cardenas [address], [place], [address], [facility] 07/21/2023 12:02:27 4 text/html 17yo [id number] for suture removals/p nexplanon removal 4doing well, no issuesdenies any pain/redness/discharge no n/v/f ADRIAN Cardenas [address], [place], [address], [facility] 07/28/2023 11:05:46 OBGyn Episode No OBEpisode recorded.
[2024-06-15 22:51] VITALS: BP 151/89; PULSE 96; RESP 18; TEMP 36.8; O2SAT 98
--- OUTSIDE RECORDS SUMMARY | 2024-06-15 23:35 | XMS_ITS | Clinical Summary ---
Author Organization [facility] Address [address] [place] [address] Care Team Providers Care [employer] Operator Name Role Phone Lit Malone MD Primary Care Provider Pj Sandhu MD Unavailable [phone] Source Comments [facility],non-owned Affiliates and Associated Physician Practices is amultiple site organization consisting of ambulatory clinics and hospital sitesin [place], [place], [place] and [place]. This disclosure is being madepursuant to the Care Everywhere program and may not contain all information available regarding this patient. 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 Gender Identity Female 10/21/2023 1:35 AM CDT [...] this topic Medical Devices Implanted Type Area Director Of Research And Development Device Identifier Shelf Expiration Date Model / Serial / Lot Chip Canc Bone Frz Dried 4-9.5mm 90cc Implanted:Qty: 1 on 08/25/2015 by Pj Sandhu MD at [facility] N/A: Back [employer] 08/28/2019 [id number] / / [id number] Cocr Rail 495mm Implanted:Qty: 1 on 08/25/2015 by Pj Sandhu MD at [facility] N/A: Back [employer] [id number] / / Closed Lumbar Laminar Hook, Offset, Right Implanted:Qty: 1 on 08/25/2015 by Pj Sandhu MD at [facility] N/A: Back [employer] [id number] / / Pedicle Hook, Large Implanted:Qty: 1 on 08/25/2015 by Pj Sandhu MD at [facility] N/A: Back [employer] [id number] / / K2m Sacral Screw, 30mm Implanted:Qty: 1 on 08/25/2015 by Pj Sandhu MD at [facility] N/A: Back [employer] [id number] / / St Scrw Atr Implanted:Qty: 1 on 08/25/2015 by Pj Sandhu MD at [facility] N/A: Back [employer] [id number] / / Scrw Poly Rayo 5.5mm X 35mm Implanted:Qty: 4 on 08/25/2015 by Pj Sandhu MD at [facility] N/A: Back [employer] [id number] / / Description:polyaxial screw Scrw Poly Rayo 5.5mm X 40mm Implanted:Qty: 1 on 08/25/2015 by Pj Sandhu MD at [facility] N/A: Back [employer] [id number] / / Description:polyaxial screw Scrw Poly Rayo Uni 5.5mm X 35mm Implanted:Qty: 3 on 08/25/2015 by Pj Sandhu MD at [facility] N/A: Back [employer] [id number] / / Description:uniaxial screw Scrw Poly Rayo Uni 5.5mm X 40mm Implanted:Qty: 2 on 08/25/2015 by Pj Sandhu MD at [facility] N/A: Back [employer] [id number] / / Description:uniaxial screws K2m Sacral Screw Implanted:Qty: 1 on 08/25/2015 by Pj Sandhu MD at [facility] N/A: Back [id number] / / Scrw Poly Rayo 6.5mm X 40mm Implanted:Qty: 2 on 08/25/2015 by Pj Sandhu MD at [facility] N/A: Back [employer] [id number] / / Scrw Rayo 6.5 X 40mm Sacr Implanted:Qty: 2 on 08/25/2015 by Pj Sandhu MD at [facility] N/A: Back [employer] [id number] / / Hayes Cocr 500mm Implanted:Qty: 1 on 08/25/2015 by Pj Sandhu MD at [facility] N/A: Back [employer] [id number] / / Insurance [facility] Next Performance [facility] Advance Directives * Full Code (Latest Code Status on File) Date Activated Date Inactivated Comments 08/25/2015 4:22 PM 08/29/2015 11:22 AM Care Teams [employer] Operator Relationship Specialty Start Date End Date Lit Malone MD [address] [place] [phone] PCP - General Family Medicine 06/24/15 Pj Sandhu MD [address] [place] [phone] Orthopedic Surgery 04/01/19
--- NOTE | 2024-06-16 00:05 | ED.ABDPAIN ---
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 She has to work tomorrow. Patient says she has not had any intercourse since October last year. Related Data Allergies Allergy/AdvReac Type Severity Reaction Status Date / Time Penicillins Allergy Mild Gastrointestinal Verified 01/23/24 10:48 Upset Review of Systems Review of Systems: All systems reviewed & are unremarkable except as noted in HPI and below PMFSH Past Medical History Medical History Viral syndrome Cellulitis of right thigh Gastroenteritis Surgical History Surgical History History of tonsillectomy and adenoidectomy Scoliosis of thoracolumbar spine Surgery with elisa placement History of cholecystectomy Family History Family History Father Asthma Hypertension Grandparent Asthma Hypertension Thyroid disorder Social History Social History Smoking status: Never smoker Alcohol intake: never Substance use: never Substance use type: does not use Lack of Transportation: No Lack of Food: Never True Current Housing: I Have Housing Concerned About Future Housing: No Difficulty Paying Gas/Electric Bills: No Difficulty Paying for Meds: No Currently Unemployed: No Education: High School Diploma/GED Difficulty w/ Childcare or Family Care: No Living arrangements: with family Occupation/Education: student Gender identity (if verbalized by the patient): Female Exam Narrative: White female patient with no apparent distress.? Head normocephalic, atraumatic.? Eyes conjunctiva pink sclera nonicteric.? Extraocular movements are intact.? Ears externally normal.? Back is nontender.? Lungs are clear.? Heart is regular rate and rhythm without murmurs gallops or rubs.? Chest wall nontender. Abdomen is soft and Mildly tender in the supra umbilical area. She is morbidly obese and there is a suggestion of a possible mass or hernia in this area. She has no hepatosplenomegaly or CVA tenderness or abdominal bruits.? Extremities no cyanosis clubbing or edema.? Skin is warm and dry without rashes or lesions.? Neurological patient is alert and oriented x4.? Motor and sensory grossly intact.? Gait is normal. Course Vital Signs Vital signs: Vital Signs Temperature 36.8 C 06/15/24 22:51 Pulse Rate 96 06/15/24 22:51 Respiratory Rate 18 06/15/24 22:51 Blood Pressure 151/89 H 06/15/24 22:51 Pulse Oximetry 98 06/15/24 22:51 Oxygen Delivery Room Air 06/15/24 22:51 Temperature 36.8 C 06/16/24 03:34 Pulse Rate 81 06/16/24 03:34 Respiratory Rate 18 06/16/24 03:34 Blood Pressure 109/71 06/16/24 03:34 Pulse Oximetry 99 06/16/24 03:34 Oxygen Delivery Room Air 06/16/24 03:34 MDM - Abdominal Pain MDM Narrative Medical decision making narrative: ?Patient placed in room: 3 ? History and physical was performed. CT abdomen pelvis with IV contrast showed acute cecal diverticulitis with an inflamed cecal diverticulum associated with this is prominent adjacent inflammatory changes. CMP was unremarkable test was negative Independent Historian: her friend External Source Review: Differential Dx includes but not limited to: umbilical hernia fatty tumor ventral hernia Medications were Reviewed: home meds reviewed Medications given: Dumfries 5, Cipro 500, Flagyl 500 p.o. Independently Interpreted by me: labs independently interpreted by me. Shared decision Making: evaluation was discussed with the patient all questions were asked and answered patient agreed with the plan. Patient will take Cipro 500 twice a day and Flagyl 500 mg 3 times a day the next 10 days Dumfries 5 4 times a day as needed for pain. Follow-up with primary care provider for further pain medications and/or treatment. She would return if she got worse or develops any new symptoms. Social Situation Impacting Patients Care: DISCHARGE DIAGNOSIS: Abdominal pain Secondary to acute cecal diverticulitis DISPOSITION : discharge CONDITION AT DISCHARGE: stable Lab Data 06/16/24 00:46 Labs: Lab Results 06/16/24 06/16/24 Range/Units 00:09 00:46 Sodium 140 (136-145) mmol/L Potassium 3.9 (3.5-5.1) mmol/L Chloride 104 (98-108) mmol/L Carbon Dioxide 27 (21-32) mmol/L Anion Gap 9 (4-12) mmol/L BUN 12 (7-18) mg/dL Creatinine 0.66 (0.55-1.02) mg/dL Estim Creat Clear Calc 164 ml/min Estimated GFR > 60 (59 - ) Glucose 94 (70-99) mg/dL Calculated Osmolality 289 (285-295) mOsm/kg Calcium 9.3 (8.5-10.1) mg/dL Urine Test Negative Discharge Plan Discharge Clinical Impression: Cecal diverticulitis Patient Disposition: Home Condition: Stable Instructions: Antibiotic Form, Diverticulitis (ED) Additional Instructions: Dumfries 1 tablet 4 times a day as needed for pain. Ibuprofen 200 mg 3 tablets 3 times a day as needed for pain. Take Cipro 500 mg twice a day for 10 days and Flagyl 500 mg 3 times a day for 10 days. Increase her fluids by mouth so only increase her diet as tolerated as discussed. Follow-up with your primary care provider this week for further pain medication. Return if you get worse or develops any new symptoms. Patient Language: Turkish Prescriptions: New ciprofloxacin HCl [Cipro] 500 mg tablet 500 mg PO Q12H 10 Days Qty: 20 0RF metronidazole 500 mg tablet 500 mg PO TID 10 Days Qty: 30 0RF hydrocodone-acetaminophen 5-325 mg tablet 1 tablet PO Q6H PRN (Reason: pain) Qty: 12 0RF No Action famotidine [Acid Die Trouble Shooter (famotidine)] 20 mg tablet 20 mg PO DAILY Qty: 30 2RF loperamide [Anti-Diarrheal (loperamide)] 2 mg capsule 2 mg PO Q6H PRN (Reason: loose stool) Qty: 60 0RF simethicone [Gas Relief (simethicone)] 180 mg capsule 180 mg PO BID PRN (Reason: abdominal distention) Qty: 60 1RF Follow-up/Referrals: Sunday Lozoya APRN [Primary Care Provider] - Time of Disposition: 03:42
[2024-06-16 00:26] LABS: Pregnancy On Board Control Positive; Urine Pregnancy Test Negative
[2024-06-16 01:01] LABS: Anion Gap 9 mmol/L (4-12); Blood Urea Nitrogen 12 mg/dL (7-18); Calcium 9.3 mg/dL (8.5-10.1); Carbon Dioxide 27 mmol/L (21-32); Chloride 104 mmol/L (98-108); Estimated CRCL calculation 164 ml/min; Estimated Glomerular Filt Rate > 60; Glucose 94 mg/dL (70-99); Osmolality Calculated 289 mOsm/kg (285-295); Potassium 3.9 mmol/L (3.5-5.1); Sodium 140 mmol/L (136-145)
[2024-06-16 03:34] VITALS: BP 109/71; PULSE 81; RESP 18; TEMP 36.8; O2SAT 99
[2024-06-16] MEDS: CIPROFLOXACIN 500 MG TAB PO (03:51)
[2024-06-16] MEDS: HYDROcodone/acetaminophen (*CRX) 5-325 MG TABLET 1 TAB PO (03:51)
[2024-06-16] MEDS: metroNIDAZOLE 250 MG TABLET 500 MG PO (03:52)
[2024-06-16 04:25] VITALS: BP 107/70; PULSE 80; RESP 16; TEMP 36.8; O2SAT 100
== END 2024-06-16 04:25 | disposition home or self-care (01) ==
PROVIDERS: Emergency Provider Emergency Medicine; PCP Nurse Practitioner Family
DX: K57.32 Diverticulitis of large intestine without perforation or abscess without bleeding (principal)
CPT/HCPCS: 36415; 74177; 80048; 81025; 99284; A9270; Q9967

== ENCOUNTER 2024-08-12 09:35 | Outpatient (CLI) | payer OTHER, SELFPAY ==
--- OUTSIDE RECORDS SUMMARY | 2024-08-12 10:23 | XMS_ITS | Clinical Summary ---
Author Organization [facility] Address [address] [place] [address] Care Team Providers Care Telecommunications Clerk Name Role Phone Lit Malone MD Primary Care Provider Pj Sandhu MD Unavailable [phone] Source Comments [facility],non-owned Affiliates and Associated Physician Practices is amultiple site organization consisting of ambulatory clinics and hospital sitesin [place], [place], [place] and [place]. This disclosure is being madepursuant to the Care Everywhere program and may not contain all information available regarding this patient. Last updated 17.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 Gender Identity Female 10/21/2023 1:35 AM CDT [...] 2:10 PM CDT Height 165.4 cm (5' 5.12) 04/01/2019 2:45 PM CS T Body Mass [...] this topic Medical Devices Implanted Type Area Salon Shampoo Assistant Device Identifier Shelf Expiration Date Model / Serial / Lot Chip Canc Bone Frz Dried 4-9.5mm 90cc Implanted:Qty: 1 on 08/25/2015 by Pj Sandhu MD at [facility] N/A: Back [employer] 08/28/2019 [id number] / / [id number] Cocr Rail 495mm Implanted:Qty: 1 on 08/25/2015 by Pj Sandhu MD at [facility] N/A: Back [employer] [id number] / / Closed Lumbar Laminar Hook, Offset, Right Implanted:Qty: 1 on 08/25/2015 by Pj Sandhu MD at [facility] N/A: Back [employer] [id number] / / Pedicle Hook, Large Implanted:Qty: 1 on 08/25/2015 by Pj Sandhu MD at [facility] N/A: Back [employer] [id number] / / K2m Sacral Screw, 30mm Implanted:Qty: 1 on 08/25/2015 by Pj Sandhu MD at [facility] N/A: Back [employer] [id number] / / St Scrw Atr Implanted:Qty: 1 on 08/25/2015 by Pj Sandhu MD at [facility] N/A: Back [employer] [id number] / / Scrw Poly Rayo 5.5mm X 35mm Implanted:Qty: 4 on 08/25/2015 by Pj Sandhu MD at [facility] N/A: Back [employer] [id number] / / Description:polyaxial screw Scrw Poly Rayo 5.5mm X 40mm Implanted:Qty: 1 on 08/25/2015 by Pj Sandhu MD at [facility] N/A: Back [employer] [id number] / / Description:polyaxial screw Scrw Poly Rayo Uni 5.5mm X 35mm Implanted:Qty: 3 on 08/25/2015 by Pj Sandhu MD at [facility] N/A: Back [employer] [id number] / / Description:uniaxial screw Scrw Poly Rayo Uni 5.5mm X 40mm Implanted:Qty: 2 on 08/25/2015 by Pj Sandhu MD at [facility] N/A: Back [employer] [id number] / / Description:uniaxial screws K2m Sacral Screw Implanted:Qty: 1 on 08/25/2015 by Pj Sandhu MD at [facility] N/A: Back [id number] / / Scrw Poly Rayo 6.5mm X 40mm Implanted:Qty: 2 on 08/25/2015 by Pj Sandhu MD at [facility] N/A: Back [employer] [id number] / / Scrw Rayo 6.5 X 40mm Sacr Implanted:Qty: 2 on 08/25/2015 by Pj Sandhu MD at [facility] N/A: Back [employer] [id number] / / Hayes Cocr 500mm Implanted:Qty: 1 on 08/25/2015 by Pj Sandhu MD at [facility] N/A: Back [employer] [id number] / / Insurance [facility] [employer] [facility] Advance Directives * Full Code (Latest Code Status on File) Date Activated Date Inactivated Comments 08/25/2015 4:22 PM 08/29/2015 11:22 AM Care Teams Telecommunications Clerk Relationship Specialty Start Date End Date Lit Malone MD [address] [place] [phone] PCP - General Family Medicine 06/24/15 Pj Sandhu MD [address] [place] [phone] Orthopedic Surgery 04/01/19
--- OUTSIDE RECORDS SUMMARY | 2024-08-12 10:23 | XMS_ITS | Data Portability ---
Author Organization [facility] [place] Address [address] [place] [address] [address] [place] [address] Assessment No assessment recorded. Plan of Treatment Reminders Order Date Submit Date Provider Last Modified By Organization Details Last Modified Time Details Appointments None recorded. Lab test, urine [address] [email or web address] [place], [place] [id number] [address], [address], [place], [address], 16:30:04 Referral None recorded. Procedures None recorded. Surgeries None recorded. Imaging None recorded. Medication Orders doxycycline hyclate 100 mg capsule [address]/Pharmacy #[id number], [address] [place], [address], 4 15:00:48 Slynd 4 mg (28) tablet [address]/Pharmacy #[id number], [address] [place], [address], 4 15:01:29 Patient TargetsNo targets recorded. Patient Instructions Encounter Date Encounter Id Patient Instructions Last Modified By Organization Details Last Modified Time 07/21/2023 [id number] surgical trays* [email or web address] Not available 05/29/2024 09:23:17 Reason for Referral None Reported. Results Created Date Observation Date Name Description Value Unit Range Abnormal Flag Note LastModifiedBy Organization Detail LastModifiedTime 07/19/19 24 07/19/2023 VAGIN ITIS/ VAGIN OSIS, DNA PROBE maico sp. detection, direct probe Negati ve negati ve Not Available [facility] (Lab) [address] [place], [address], 07/20/2023 11:35:55 07/19/19 24 07/19/2023 VAGIN ITIS/ VAGIN OSIS, DNA PROBE gardnerella vag. detection, direct probe Positi ve negati ve abnormal Not Available [facility] (Lab) [address] [place], [address], 07/20/2023 11:35:55 07/19/19 24 07/19/2023 VAGIN ITIS/ VAGIN OSIS, DNA PROBE trichomonas vag. detection, direct probe Negati ve negati ve Not Available [facility] (Lab) [address], [place], [address], 07/20/2023 11:35:55 07/19/19 24 07/19/2023 CULTU RE: URINE result report SEE RESULT S BELOW Test: Cultu re: Urine Speci men Sourc e: Urine - Clean Catch Speci men Type: Urine Speci men Date: 2023 5:07 PM Resul t Date: 2023 5:50 AM Resul t Statu s: Final resul t Abnor mal: No Resul ting Lab: [facility] [address] [facility] [address] Tel: CULTU RE ----- ----- ----- --- No growt h in 1 day (dete ction level of 10,00 0 colon ies / ml.) Not Available [facility] (Lab) [address] [place], [address], 07/21/2023 06:55:31 07/19/19 24 07/19/2023 pregn sabina test, urine HCG negati ve Not Available [place] [address], [place], [address], 07/19/2023 16:29:57 01/19/20 24 01/19/2024 [facility] SWAB PLUS, RIA bacterial vaginosis (bv), tma Positi ve negati ve abnormal Not Available [facility] (Lab) [address] [place], [address], 01/20/2024 15:06:22 01/19/20 24 01/19/2024 [facility] SWAB [facility], RIA maico species, tma Negati ve negati ve Not Available [facility] (Lab) [address] [facility], [place], [address], 01/20/2024 15:06:22 01/19/20 24 01/19/2024 [facility] SWAB PLUS, RIA maico glabrata, tma Negati ve negati ve Not Available [facility] (Lab) [address] [place], [address], 01/20/2024 15:06:22 01/19/20 24 01/19/2024 [facility] SWAB PL[facility], RIA trichomonas vaginalis, tma Negati ve negati ve Not Available [facility] (Lab) [address] [place], [address], 01/20/2024 15:06:22 01/19/20 24 01/19/2024 [facility] SWAB PLUS, RIA chlamydia trachomatis, PCR Negati ve negati ve Not Available [facility] (Lab) [address] [place], [address], 01/20/2024 15:06:22 01/19/20 24 01/19/2024 [facility] SWAB PLUS, RIA neisseria gonorrhoeae, PCR Negati ve negati ve Bacte rial vagin osis detec ts the follo wing bacte gene assoc iated with bacte rial vagin osis (BV): Lacto bacil sree (L. gasse ri, L. crisp atus and L. jense nasley), Gardn erell a vagin carmen, and Atopo [...] ded in this panel . Not Available [facility] (Lab) [address], [place], [address], 01/20/2024 15:06:22 Result Notes None recorded. Procedures Surgical History Date Name Laterality Status Provider Name and Address Organization Details Recorded Time 4 Suture/Stapl e removal completed ADRIAN Cardenas [address], [place], [address], [facility] 07/28/2023 11:04:16 4 Control Implant Removal completed ADRIAN Cardenas [address], [place], [address], [facility] 07/21/2023 11:59:01 tonsilectomy /adenoids completed Radha Madrigal [facility] 07/19/2023 16:17:41 Imaging Results None recorded. Procedure Notes None recorded. Medical Equipment None Reported. Allergies Allergen ID Allergen Name Allergen Category Reaction Reaction Severity Criticality Documentation Date Start Date Code Code System Note Provider Name and Address Organization Details Recorded Time 92885 Penicilli n Not available anaphylax is severe Not available 01/19/2024 74130 RxNorm Marisol dorsey, [facility] 4 17:49:30 Medications Name Sig [...] 4 165.1 cm 99.94 % 51.1 kg/m2 845831. 86 g 121 mm[Hg] 80 mm[Hg] Radha Madrigal [facility] 4 16:06:45 Date Recorded Body height Body mass index (BMI) Percentile per age and sex Body mass index (BMI) Body weight Systolic blood pressure Diastolic blood pressure Provider Name and Address Organization Details Last Updated DateTime 4 165.1 cm 99.93 % 50.9 kg/m2 915917. 27 g 128 mm[Hg] 84 mm[Hg] Radha Madrigal [facility] 4 11:11:09 Date Recorded Body height Body mass index (BMI) Percentile per age and sex Body mass index (BMI) Body weight Systolic blood pressure Diastolic blood pressure Provider Name and Address Organization Details Last Updated DateTime 4 165.1 cm 99.93 % 50.9 kg/m2 289189. 27 g 132 mm[Hg] 82 mm[Hg] [facility] 4 10:18:08 Date Recorded Body height Body mass index (BMI) Body mass index (BMI) Percentile per age and sex Body weight Systolic blood pressure Diastolic blood pressure Provider Name and Address Organization Details Last Updated DateTime 4 165.1 cm 50.9 kg/m2 99 % 189160. 27 g 132 mm[Hg] 81 mm[Hg] Marisol Silver [facility] 4 17:47:55 Social History Question Answer Notes LastModified by Organizat ion Details LastModified Time Tobacco Smoking Status Never Smoker Radha Madrigal [facility] 07/19/2023 16:16:36 Are You Blind Or Do You Have Difficulty Seeing? No Information not available 07/19/2023 What Is Your Level Of Caffeine Consumption? Occasional Information not available 07/19/2023 How Much Tobacco Do You Chew? None [email or web address] Information not available 01/19/2024 In The 14 Days Before Symptom Onset, Have You Had Close Contact With A Laboratory-confir med COVID-19 While That Case Was Ill? No [...] Or The Highest Degree You Have Received? LV51518-8 Information not available 07/19/2023 Are There Any [...] No Information not available 07/27/2023 Do You Use Sunscreen Routinely? No Information not available 07/19/2023 Have You Used IV Drugs? No Information not available 07/19/2023 Sex: Unknown Functional Status Question Answer Note LastModified by Organizat ion Details LastModified Time Do you use any illicit or recreational drugs? No Information not available 07/19/2023 What is your level of alcohol consumption? None Information not available 07/19/2023 Are you able to walk? YESWOREST Information not available 07/19/2023 What is your exercise level? Occasional Information not available 07/19/2023 Mental Status Question Answer Note LastModified by Organization D etails LastModified Time Do you feel stressed (tense, restless, nervous, or anxious, or unable to sleep at night)? [id number] Information not available 07/19/2023 Family History Relationship Description Onset Age of [...] SNOMED-CT Code Diagnosis ICD10 Code Diagnosis Note [id number] ADRIAN Cardenas [place] [address] [address] 07/19/2023 16:03:21 07/19/2023 17:01:09 Abnormal uterine bleeding [id number] 9100 N93.9 Irregular periods 590631 07 N92.6 Detailed health hx obtained and reviewed todayDiscu ssed nexplanon and SE of irregular/ unschedule d bleeding that can occuralter ione BC methods discussed - r/b/a reviewedde sires nexplanon removal and to start slyndsched uled to return this week for nexplanon removalque stions answered, precaution s reviewedST I testing declined (had recent negative testing at her PCP) Contracept ion care management [id number] Z30.9 Vaginal odor 757749915 N 89.8 vaginitis panel sent, vulvar care guidelines discussed Urinary symptoms 5403478 08 R39.9 urine cx sent Time spent in visit is a total of 30 mins with at least 50% of visit consisting of counseling and review of plan of care. [id number] ADRIAN Cardenas [place] [address] [address] 07/21/2023 11:01:24 07/21/2023 12:06:12 Removal of subcutaneous contraceptive 375492588 Z30.46 consent reviewed and signednexp lanon removed (see procedure note)RTC in 1 week for suture removalpre cautions discussed, questions answered, pt verbalized understand [facility] [id number] ADRIAN Cardenas [place] [address] [address] 07/28/2023 10:15:46 07/28/2023 11:08:20 Removal of suture 92400035 Z48.02 removal of sutures done (see procedure note)pt doing wellprecau tions discussedR TC for med check of slynd in 3-4 months [id number] Krish Echols MD [place] [address] [address] 01/19/2024 15:31:49 01/22/2024 04:18:10 Health Concerns Section Related Observation LastModified by Organization Detai ls LastModified Time None Recorded Concern Status LastModified by Organization Details LastModified Time None Recorded Advance Directives Directive None Recorded Payers Encounter Date Sequence Insurance Name Policy Number Policy Price Covered Member ID Price Member ID Guarantor Name 07/19/2023 1 [place] [facility] [id number] [facility] 07/21/2023 1 [place] [facility] [id number] [facility] 07/28/2023 1 [place] [facility] [id number] [facility] 01/19/2024 1 [facility] (MEDICAID HMO) [id number] [facility] [id number] [facility] Notes Date Note Type Note Provider Name and Address Organization Details Recorded Time 4 text/html 17yo [id number] for irregular bleedingnexplanon for BC, inserted in [...] dizziness, fatigue ADRIAN Cardenas [address], [place], [address], [facility] 07/19/2023 16:52:44 4 text/html 17yopresents for nexplanon removal ADRIAN Cardenas [address], [place], [address], [facility] 07/21/2023 12:02:27 4 text/html 17yo [id number] for suture removals/p nexplanon removal 4doing well, no issuesdenies any pain/redness/discharge no n/v/f ADRIAN Cardenas [address], [place], [address], [facility] 07/28/2023 11:05:46 OBGyn Episode No OBEpisode recorded.
[2024-08-15 08:03] LABS: TB Skin Test Induration 0 mm (0-10); TB Skin Test Site Left Arm
[2024-08-15 08:04] LABS: TB Skin Test Erythema 1 mm; TB Skin Test Interpretation Negative (Negative)
== END 2024-08-12 09:36 | disposition home or self-care (01) ==
LOC: CHSLAB 09:37
PROVIDERS: PCP Nurse Practitioner Family; Visit Provider Nurse Practitioner Family
DX: Z11.1 Encounter for screening for respiratory tuberculosis (principal)
CPT/HCPCS: 36415; 86580

== ENCOUNTER 2024-11-13 16:17 | Outpatient (NON) | payer OTHER, SELFPAY ==
--- OUTSIDE RECORDS SUMMARY | 2024-11-13 16:21 | XMS_ITS | Clinical Summary ---
Author Organization [facility] Address [address] [place] [address] Care Team Providers Care Patrol Agent Name Role Phone Lit Malone MD Primary Care Provider Pj Sandhu MD Unavailable [phone] Source Comments [facility],non-owned Affiliates and Associated Physician Practices is amultiple site organization consisting of ambulatory clinics and hospital sitesin [place], [place], [place] and [place]. This disclosure is being madepursuant to the Care Everywhere program and may not contain all information available regarding this patient. 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 Gender Identity Female 10/21/2023 1:35 AM CDT [...] of 3 - 19+ 3-dose series) 09/10/2022 DEPRESSION SCREENING 03/06/2024 10/20/2023 PAP SMEAR 09/10/2024 COVID-19 VACCINE (1 - 2023-2 5 season) 2024 INFLUENZA VACCINE (#1) 2024 ZOSTER VACCINE (1 of 2) 09/10/2053 HIB VACCINE Aged Out No longer eligi ble based on patient's age to complete this topic MENINGOCOCCAL GROUPS A/C/Y/W VACCINE Aged Out No longer eligible b ased on patient's age to complete this topic PNEUMOCOCCAL VACCINE Aged Out No long er eligible based on patient's age to complete this topic Medical Devices Implanted Type Area Laundry Operator Wash Room Device Identifier Shelf Expiration Date Model / Serial / Lot Chip Canc Bone Frz Dried 4-9.5mm 90cc Implanted:Qty: 1 on 08/25/2015 by Pj Sandhu MD at [facility] N/A: Back [employer] 08/28/2019 [id number] / / [id number] Cocr Rail 495mm Implanted:Qty: 1 on 08/25/2015 by Pj Sandhu MD at [facility] N/A: Back Mixercast [id number] / / Closed Lumbar Laminar Hook, Offset, Right Implanted:Qty: 1 on 08/25/2015 by Pj Sandhu MD at [facility] N/A: Back [employer]ast [id number] / / Pedicle Hook, Large Implanted:Qty: 1 on 08/25/2015 by Pj Sandhu MD at [facility] N/A: Back [employer]ast [id number] / / K2m Sacral Screw, 30mm Implanted:Qty: 1 on 08/25/2015 by Pj Sandhu MD at [facility] N/A: Back [employer]ast [id number] / / St Scrw Atr Implanted:Qty: 1 on 08/25/2015 by Pj Sandhu MD at [facility] N/A: Back [employer]ast [id number] / / Scrw Poly Rayo 5.5mm X 35mm Implanted:Qty: 4 on 08/25/2015 by Pj Sandhu MD at [facility] N/A: Back [employer]ast [id number] / / Description:polyaxial screw Scrw Poly Rayo 5.5mm X 40mm Implanted:Qty: 1 on 08/25/2015 by Pj Sandhu MD at [facility] N/A: Back [employer]ast [id number] / / Description:polyaxial screw Scrw Poly Rayo Uni 5.5mm X 35mm Implanted:Qty: 3 on 08/25/2015 by Pj Sandhu MD at [facility] N/A: Back [employer]ast [id number] / / Description:uniaxial screw Scrw Poly Rayo Uni 5.5mm X 40mm Implanted:Qty: 2 on 08/25/2015 by Pj Sandhu MD at [facility] N/A: Back [employer]ast [id number] / / Description:uniaxial screws K2m Sacral Screw Implanted:Qty: 1 on 08/25/2015 by Pj Sandhu MD at [facility] N/A: Back [id number] / / Scrw Poly Rayo 6.5mm X 40mm Implanted:Qty: 2 on 08/25/2015 by Pj Sandhu MD at [facility] N/A: Back Mixercast [id number] / / Scrw Rayo 6.5 X 40mm Sacr Implanted:Qty: 2 on 08/25/2015 by Pj Sandhu MD at [facility] N/A: Back Mix[employer]ast [id number] / / Hayes Cocr 500mm Implanted:Qty: 1 on 08/25/2015 by Pj Sandhu MD at [facility] N/A: Back [employer]ast [id number] / / Insurance [facility] [employer] [facility] Advance Directives * Full Code (Latest Code Status on File) Date Activated Date Inactivated Comments 08/25/2015 4:22 PM 08/29/2015 11:22 AM Care Teams Patrol Agent Relationship Specialty Start Date End Date Lit Malone MD [address] [place] [phone] PCP - General Family Medicine 06/24/15 Pj Sandhu MD [address] [place] [phone] Orthopedic Surgery 04/01/19
== END 2024-11-13 16:18 | disposition home or self-care (01) ==
LOC: CHSLAB 16:18
PROVIDERS: PCP Nurse Practitioner Family; Visit Provider Nurse Practitioner Family
DX: N89.8 Other specified noninflammatory disorders of vagina (principal)
CPT/HCPCS: 87070; 87798